=== PATIENT | female | born 1935 | race Caucasian/White ===

== ENCOUNTER 2017-06-27 06:50 | Emergency (ER) | payer OTHER ==
[~2017-06-27] VITALS: Ht 127 cm; Wt 54.4 kg
[~2017-06-27 06:50] MED LIST: DECADRON PO; GABAPENTIN300 MG PO; KEFLEX500 MG PO; PRILOSEC20 MG PO; TRAMADOL HCL50 MG PO; TRIAMTERENE/HCT1 TAB PO; ULTRAM50 MG PO; VERAPAMIL; ZOCOR40 MG PO
[2017-06-27 07:01] VITALS: BP 162/70
[2017-06-27] MEDS ORDERED: KEFLEX500 M1 PO (07:15)
== END 2017-06-27 08:50 | disposition home or self-care (01) ==
LOC: ED 06:50
DX: S80.811A Abrasion, right lower leg, initial encounter (principal); L08.9 Local infection of the skin and subcutaneous tissue, unspecified; Z88.6 Allergy status to analgesic agent; Z88.5 Allergy status to narcotic agent; Z88.8 Allergy status to other drugs, medicaments and biological substances; Z79.899 Other long term (current) drug therapy; W22.8XXA Striking against or struck by other objects, initial encounter; Y93.89 Activity, other specified; Y92.89 Other specified places as the place of occurrence of the external cause; Y99.8 Other external cause status

== ENCOUNTER → 2017-09-18 | Outpatient (CLI) | payer OTHER ==
[~2017-09-18] MED LIST changes: +KEFLEX500 M1 PO
== END | disposition home or self-care (01) ==
LOC: US 13:30
DX: M79.605 Pain in left leg (principal); M79.604 Pain in right leg; R60.0 Localized edema

== ENCOUNTER 2017-10-20 08:20 | Emergency (ER) | payer OTHER ==
[~2017-10-20] VITALS: Ht 162.5 cm; Wt 54.4 kg
[2017-10-20 08:24] VITALS: BP 110/72
== END 2017-10-20 09:36 | disposition home or self-care (01) ==
LOC: ED 08:20
DX: S89.91XA Unspecified injury of right lower leg, initial encounter (principal); S49.91XA Unspecified injury of right shoulder and upper arm, initial encounter; M79.651 Pain in right thigh; Z88.6 Allergy status to analgesic agent; Z88.8 Allergy status to other drugs, medicaments and biological substances; Z88.1 Allergy status to other antibiotic agents; Z79.899 Other long term (current) drug therapy; W18.30XA Fall on same level, unspecified, initial encounter; Y93.89 Activity, other specified; Y92.009 Unspecified place in unspecified non-institutional (private) residence as the place of occurrence of the external cause; Y99.8 Other external cause status

== ENCOUNTER → 2018-07-08 | Outpatient (CLI) | payer OTHER | END | disposition home or self-care (01) | LOC: RAD 15:16 | DX: M41.85 Other forms of scoliosis, thoracolumbar region (principal); S33.130A Subluxation of L3/L4 lumbar vertebra, initial encounter; M16.12 Unilateral primary osteoarthritis, left hip; X58.XXXA Exposure to other specified factors, initial encounter; Y93.89 Activity, other specified; Y92.89 Other specified places as the place of occurrence of the external cause; Y99.8 Other external cause status; Z91.81 History of falling ==

== ENCOUNTER → 2020-05-19 | Outpatient (CLI) | payer OTHER ==
[2020-05-19 16:23] LABS: BASO # 0.1 10*3/uL (0.0-0.1); BASO % 0.8 % (0.0-1.0); EOS # 0.3 10*3/uL (0.0-0.4); HEMATOCRIT 40.9 % (37.0-47.0); LYMPH # 2.3 10*3/uL (1.3-4.4); LYMPH % 27.8 % (27.0-41.0); MEAN CELL VOLUME 97.1 fl (81.0-99.0); MEAN CORPUSCULAR HGB 30.2 pg (27.0-31.0); MEAN CORPUSCULAR HGB CONC 31.1 g/dl (33.0-37.0); MEAN PLATELET VOLUME 10.4 fl (9.6-12.3); MONO # 0.8 10*3/uL (0.1-1.0); MONO % 9.1 % (3.0-9.0); NEUT # 4.9 10*3/uL (2.3-7.9); NEUT % 58.8 % (47.0-73.0); PLATELET COUNT AUTOMATED 280 10*3/uL (130-400); RED BLOOD COUNT 4.21 10*6/uL (4.10-5.10); RED CELL DISTRI WIDTH 13.2 % (0-14.5); WHITE BLOOD COUNT 8.3 10*3/uL (4.8-10.8)
[2020-05-19 16:38] LABS: BILIRUBIN Negative (Negative); BLOOD Negative (Negative); CLARITY Clear (Clear); COLOR Yellow (Yellow); GLUCOSE Negative (Negative); KETONE Negative (Negative); LEUKO ESTERASE 1+ (Negative); NITRITE Negative (Negative)
[2020-05-19 16:39] LABS: ALBUMIN 3.7 gm/dl (3.1-4.5); CREATININE 1.32 mg/dL (0.55-1.02); POTASSIUM 3.3 mmol/L (3.5-5.1)
[2020-05-19 16:47] LABS: URINE CREATININE RANDOM 93.6 mg/dL
[2020-05-19 17:03] LABS: EPITHELIAL CELLS 0-2
== END | disposition home or self-care (01) ==
LOC: LAB 14:49
PROVIDERS: ATTEND Internal Medicine Nephrology
DX: N18.30 Chronic kidney disease, stage 3 unspecified (principal); Z79.899 Other long term (current) drug therapy

== ENCOUNTER → 2020-12-04 | Outpatient (CLI) | payer OTHER ==
[2020-12-04 16:02] LABS: BASO # 0.1 10*3/uL (0.0-0.1); BASO % 0.9 % (0.0-1.0); EOS # 0.3 10*3/uL (0.0-0.4); EOS % 3.5 % (1.0-4.0); HEMATOCRIT 40.6 % (37.0-47.0); LYMPH # 2.3 10*3/uL (1.3-4.4); LYMPH % 30.1 % (27.0-41.0); MEAN CELL VOLUME 93.8 fl (81.0-99.0); MEAN CORPUSCULAR HGB 29.6 pg (27.0-31.0); MEAN CORPUSCULAR HGB CONC 31.5 g/dl (33.0-37.0); MEAN PLATELET VOLUME 9.5 fl (9.6-12.3); MONO # 0.8 10*3/uL (0.1-1.0); MONO % 10.1 % (3.0-9.0); NEUT # 4.3 10*3/uL (2.3-7.9); PLATELET COUNT AUTOMATED 293 10*3/uL (130-400); RED BLOOD COUNT 4.33 10*6/uL (4.10-5.10); RED CELL DISTRI WIDTH 13.2 % (0-14.5); WHITE BLOOD COUNT 7.8 10*3/uL (4.8-10.8)
[2020-12-04 16:02] LABS: BILIRUBIN Negative (Negative); BLOOD Negative (Negative); CLARITY Clear (Clear); COLOR Yellow (Yellow); GLUCOSE Negative (Negative); KETONE Negative (Negative); LEUKO ESTERASE 2+ (Negative); NITRITE Negative (Negative); PH 7.5 (4.5-8.0)
[2020-12-04 16:32] LABS: BACTERIA TRACE; EPITHELIAL CELLS 51-100; RBC 0-2 rbc/hpf (0-2); WBC 21-30 wbc/hpf (0-5)
[2020-12-04 16:32] LABS: ALBUMIN 3.6 gm/dl (3.1-4.5); CREATININE 1.28 mg/dL (0.55-1.02); POTASSIUM 3.1 mmol/L (3.5-5.1); URIC ACID 7.7 mg/dL (2.6-6.0)
[2020-12-04 16:39] LABS: FERRITIN 68.1 ng/mL (10.0-291.0)
== END | disposition home or self-care (01) ==
LOC: LAB 14:59 → US 15:00 → LAB 15:00
PROVIDERS: Internal Medicine Nephrology; ATTEND Podiatrist
DX: N18.30 Chronic kidney disease, stage 3 unspecified (principal); N25.81 Secondary hyperparathyroidism of renal origin; D63.1 Anemia in chronic kidney disease; E78.00 Pure hypercholesterolemia, unspecified

== ENCOUNTER 2021-08-06 15:45 | Emergency (ER) | payer OTHER ==
[~2021-08-06] VITALS: Ht 147.3 cm; Wt 54.4 kg
[2021-08-06 15:58] VITALS: BP 148/76
== END 2021-08-06 19:11 | disposition home or self-care (01) ==
LOC: ED 15:45
DX: S63.502A Unspecified sprain of left wrist, initial encounter (principal); S93.601A Unspecified sprain of right foot, initial encounter; S00.93XA Contusion of unspecified part of head, initial encounter; Z88.6 Allergy status to analgesic agent; Z88.8 Allergy status to other drugs, medicaments and biological substances; Z79.899 Other long term (current) drug therapy; Z90.710 Acquired absence of both cervix and uterus; Z90.49 Acquired absence of other specified parts of digestive tract; W01.0XXA Fall on same level from slipping, tripping and stumbling without subsequent striking against object, initial encounter; Y93.89 Activity, other specified; Y92.89 Other specified places as the place of occurrence of the external cause; Y99.8 Other external cause status

== ENCOUNTER → 2022-03-18 | Outpatient (CLI) | payer OTHER, MEDICAID ==
[2022-03-18 11:38] LABS: BASO # 0.1 10*3/uL (0.0-0.1); BASO % 0.6 % (0.0-1.0); EOS # 0.5 10*3/uL (0.0-0.4); EOS % 3.8 % (1.0-4.0); HEMATOCRIT 42.3 % (37.0-47.0); MEAN CELL VOLUME 94.8 fl (81.0-99.0); MEAN CORPUSCULAR HGB 30.7 pg (27.0-31.0); MEAN CORPUSCULAR HGB CONC 32.4 g/dl (33.0-37.0); MEAN PLATELET VOLUME 9.7 fl (9.6-12.3); NEUT # 7.5 10*3/uL (2.3-7.9); NEUT % 62.3 % (47.0-73.0); PLATELET COUNT AUTOMATED 287 10*3/uL (130-400); RED BLOOD COUNT 4.46 10*6/uL (4.10-5.10); RED CELL DISTRI WIDTH 13.6 % (0-14.5)
[2022-03-18 11:58] LABS: CREATININE 1.31 mg/dL (0.55-1.02); POTASSIUM 3.4 mmol/L (3.5-5.1); URIC ACID 8.2 mg/dL (2.6-6.0)
[2022-03-18 12:37] LABS: FERRITIN 43.2 ng/mL (10.0-291.0); VITAMIN D, 25-HYDROXY 24.9 ng/mL (30-100)
[2022-03-18 13:39] LABS: BILIRUBIN Negative (Negative); BLOOD Negative (Negative); CLARITY Clear (Clear); COLOR Yellow (Yellow); GLUCOSE Negative (Negative); KETONE Negative (Negative); LEUKO ESTERASE Negative (Negative); NITRITE Negative (Negative); UROBILINOGEN 0.2 E.U./dl (0.0-1.0)
[2022-03-18 14:31] LABS: EPITHELIAL CELLS 0-2; WBC 0-2 wbc/hpf (0-5)
[2022-03-18 19:23] LABS: URINE CREATININE RANDOM 14.6 mg/dL
== END | disposition home or self-care (01) ==
LOC: LAB 11:08
PROVIDERS: ATTEND Internal Medicine Nephrology
DX: N18.30 Chronic kidney disease, stage 3 unspecified (principal); N25.81 Secondary hyperparathyroidism of renal origin; D63.1 Anemia in chronic kidney disease; E79.0 Hyperuricemia without signs of inflammatory arthritis and tophaceous disease; Z79.899 Other long term (current) drug therapy

== ENCOUNTER 2022-06-13 17:48 | Emergency (ER) | payer OTHER, MEDICAID ==
[~2022-06-13] VITALS: Ht 162.5 cm; Wt 61.2 kg
[2022-06-13 18:26] LABS: HEMATOCRIT 47.2 % (37.0-47.0); MEAN CELL VOLUME 92.9 fl (81.0-99.0); MEAN CORPUSCULAR HGB 30.9 pg (27.0-31.0); MEAN CORPUSCULAR HGB CONC 33.3 g/dl (33.0-37.0); MEAN PLATELET VOLUME 9.6 fl (9.6-12.3); PLATELET COUNT AUTOMATED 301 10*3/uL (130-400); RED BLOOD COUNT 5.08 10*6/uL (4.10-5.10); RED CELL DISTRI WIDTH 13.3 % (0-14.5); WHITE BLOOD COUNT 14.4 10*3/uL (4.8-10.8)
[2022-06-13 18:37] LABS: ACT PARTIAL THROMBO TIME 26.2 SECONDS (20.0-32.1)
[2022-06-13 18:44] LABS: CREATININE 1.32 mg/dL (0.55-1.02); POTASSIUM 3.2 mmol/L (3.4-5.1); TOTAL PROTEIN 7.8 gm/dL (6.0-8.0)
[2022-06-13 18:53] LABS: MANUAL DIFF REFLEX YES
[2022-06-13 19:14] LABS: TOTAL CELLS COUNTED 100 #CELLS
[2022-06-13 19:15] LABS: PLATELET SUFFICIENCY NORMAL (NORMAL)
[2022-06-13 19:53] VITALS: BP 150/97
[2022-06-13] MEDS ORDERED: OMNICEF300 MG PO (20:10)
[2022-06-13] MEDS ORDERED: PROVENTIL HFA6.7 GM PO (20:10)
[2022-06-13] MEDS ORDERED: Ondansetron4 MG PO (20:10)
[2022-06-14] MEDS ORDERED: FUROSEMIDE20 M1 PO (03:31)
[2022-06-14] MEDS ORDERED: NEURONTIN300 MG PO (03:32)
[2022-06-14] MEDS ORDERED: TRAMADOL HCL50 MG PO (03:33)
[2022-06-14] MEDS ORDERED: [UNRECOGNIZED DRUG - OTHER] PO (03:34)
[2022-06-14] MEDS ORDERED: TRIAMTERENE-HC1 EACH PO (03:35)
[2022-06-15] MEDS ORDERED: ONDANSETRON HYDR4 M1 PO (12:22)
== END 2022-06-13 20:17 | disposition home or self-care (01) ==
LOC: ED 17:48
PROVIDERS: Emergency Medicine
DX: J40 Bronchitis, not specified as acute or chronic (principal); Z20.822 Contact with and (suspected) exposure to COVID-19; Z90.49 Acquired absence of other specified parts of digestive tract; Z90.710 Acquired absence of both cervix and uterus; Z98.890 Other specified postprocedural states; Z88.1 Allergy status to other antibiotic agents; Z88.5 Allergy status to narcotic agent; Z88.6 Allergy status to analgesic agent; Z88.8 Allergy status to other drugs, medicaments and biological substances

== ENCOUNTER → 2022-10-01 | Outpatient (CLI) | payer OTHER, MEDICAID ==
[~2022-10-01] MED LIST changes: +FUROSEMIDE20 M1 PO; +NEURONTIN300 MG PO; +OMNICEF300 MG PO; +ONDANSETRON HYDR4 M1 PO; +Ondansetron4 MG PO; +PROVENTIL HFA6.7 GM PO; +TRIAMTERENE-HC1 EACH PO; +[UNRECOGNIZED DRUG - OTHER] PO
== END | disposition home or self-care (01) ==
LOC: US 14:52
PROVIDERS: ATTEND Family Medicine
DX: M79.604 Pain in right leg (principal); M79.605 Pain in left leg

== ENCOUNTER 2023-11-03 06:55 | Emergency (ER) | payer OTHER, MEDICAID ==
[~2023-11-03] VITALS: Ht 127 cm; Wt 59.0 kg
[2023-11-03 07:05] VITALS: BP 136/60
[2023-11-03] MEDS ORDERED: TRAMADOL HCL50 MG PO (07:07)
[2023-11-03] MEDS ORDERED: ALLOPURINOL100 MG PO (07:08)
[2023-11-03 07:42] LABS: BASO % 0.5 % (0.0-1.0); EOS # 0.3 10*3/uL (0.0-0.4); EOS % 4.1 % (1.0-4.0); HEMATOCRIT 46.5 % (37.0-47.0); LYMPH # 2.4 10*3/uL (1.3-4.4); LYMPH % 30.9 % (27.0-41.0); MEAN CELL VOLUME 93.9 fl (81.0-99.0); MEAN CORPUSCULAR HGB 29.3 pg (27.0-31.0); MEAN CORPUSCULAR HGB CONC 31.2 g/dl (33.0-37.0); MEAN PLATELET VOLUME 9.3 fl (9.6-12.3); MONO # 0.7 10*3/uL (0.1-1.0); MONO % 8.7 % (3.0-9.0); NEUT # 4.3 10*3/uL (2.3-7.9); NEUT % 55.3 % (47.0-73.0); PLATELET COUNT AUTOMATED 298 10*3/uL (130-400); RED BLOOD COUNT 4.95 10*6/uL (4.10-5.10); RED CELL DISTRI WIDTH 13.8 % (0-14.5); WHITE BLOOD COUNT 7.7 10*3/uL (4.8-10.8)
[2023-11-03 07:53] LABS: ACT PARTIAL THROMBO TIME 27.2 SECONDS (20.0-32.1)
[2023-11-03 08:00] LABS: ALKALINE PHOSPHATASE 109 U/L (46-116); BUN 20 mg/dl (9-23); CHLORIDE 99 mmol/L (98-107); LIPASE 39 U/L (12-53); POTASSIUM 3.3 mmol/L (3.4-5.1); TOTAL PROTEIN 7.5 gm/dL (6.0-8.0)
[2023-11-03 08:02] LABS: SGPT/ALT < 7 U/L (5-49)
[2023-11-03] MEDS ORDERED: SODIUM CHLORIDE 0.9% 1,000 ML IV ONE (08:25)
[2023-11-03] MEDS ORDERED: AMOX-CLAV 875-1 EACH PO (10:28)
[2023-11-03] MEDS ORDERED: PREDNISONE20 M1 PO (10:28)
[2023-11-03] MEDS ORDERED: POTASSIUM CHLORIDE 20 MEQ TAB PO ONE (10:30)
== END 2023-11-03 11:00 | disposition home or self-care (01) ==
LOC: ED 06:55
PROVIDERS: Internal Medicine
DX: J18.9 Pneumonia, unspecified organism (principal); E87.6 Hypokalemia; E87.20 Acidosis, unspecified; Z53.29 Procedure and treatment not carried out because of patient's decision for other reasons; K21.9 Gastro-esophageal reflux disease without esophagitis; I10 Essential (primary) hypertension; M19.90 Unspecified osteoarthritis, unspecified site; E78.00 Pure hypercholesterolemia, unspecified; Z88.6 Allergy status to analgesic agent; Z88.8 Allergy status to other drugs, medicaments and biological substances; Z88.5 Allergy status to narcotic agent; Z90.49 Acquired absence of other specified parts of digestive tract; Z98.890 Other specified postprocedural states; Z90.710 Acquired absence of both cervix and uterus

== ENCOUNTER 2024-01-13 06:09 | Emergency (ER) | payer OTHER, MEDICAID ==
[~2024-01-13] VITALS: Ht 127 cm; Wt 59.0 kg
[~2024-01-13 06:09] MED LIST changes: +ALLOPURINOL100 MG PO; +AMOX-CLAV 875-1 EACH PO; +PREDNISONE20 M1 PO
[2024-01-13 06:34] VITALS: BP 135/46
[2024-01-13 06:54] LABS: BASO # 0.1 10*3/uL (0.0-0.1); BASO % 0.9 % (0.0-1.0); EOS # 0.4 10*3/uL (0.0-0.4); EOS % 5.6 % (1.0-4.0); HEMATOCRIT 41.1 % (37.0-47.0); LYMPH # 1.7 10*3/uL (1.3-4.4); LYMPH % 21.9 % (27.0-41.0); MEAN CELL VOLUME 94.9 fl (81.0-99.0); MEAN CORPUSCULAR HGB 29.6 pg (27.0-31.0); MEAN CORPUSCULAR HGB CONC 31.1 g/dl (33.0-37.0); MEAN PLATELET VOLUME 9.1 fl (9.6-12.3); MONO # 0.8 10*3/uL (0.1-1.0); MONO % 10.2 % (3.0-9.0); NEUT # 4.7 10*3/uL (2.3-7.9); PLATELET COUNT AUTOMATED 344 10*3/uL (130-400); RED BLOOD COUNT 4.33 10*6/uL (4.10-5.10); WHITE BLOOD COUNT 7.7 10*3/uL (4.8-10.8)
[2024-01-13 07:04] LABS: ACT PARTIAL THROMBO TIME 28.1 SECONDS (20.0-32.1)
[2024-01-13 07:10] LABS: ALKALINE PHOSPHATASE 103 U/L (46-116); BUN 12 mg/dl (9-23); CHLORIDE 103 mmol/L (98-107); POTASSIUM 3.4 mmol/L (3.4-5.1); TOTAL PROTEIN 6.4 gm/dL (6.0-8.0)
[2024-01-13 07:12] LABS: SGPT/ALT < 7 U/L (5-49)
[2024-01-13] MEDS ORDERED: LASIX40 MG PO (07:34)
[2024-01-13] MEDS ORDERED: FUROSEMIDE 40 MG TAB PO ONE (07:35)
[2024-01-13] MEDS ORDERED: CEPHALEXIN500 M1 PO (07:40)
[2024-01-13] MEDS ORDERED: Doxycycline Hyclate 100 MG CAP PO ONE (07:40)
[2024-01-13] MEDS ORDERED: CEPHALEXIN 500 MG CAP PO ONE (07:45)
== END 2024-01-13 08:14 | disposition home or self-care (01) ==
LOC: ED 06:09
PROVIDERS: Internal Medicine
DX: I87.2 Venous insufficiency (chronic) (peripheral) (principal); L03.116 Cellulitis of left lower limb; L03.115 Cellulitis of right lower limb; Z88.6 Allergy status to analgesic agent; Z88.5 Allergy status to narcotic agent; Z88.8 Allergy status to other drugs, medicaments and biological substances; Z88.1 Allergy status to other antibiotic agents; Z79.899 Other long term (current) drug therapy; Z90.49 Acquired absence of other specified parts of digestive tract; Z90.710 Acquired absence of both cervix and uterus; Z98.890 Other specified postprocedural states

== ENCOUNTER 2024-04-11 15:43 | Emergency (ER) | payer OTHER, MEDICAID ==
[~2024-04-11] VITALS: Ht 152.4 cm; Wt 59.0 kg
[~2024-04-11 15:43] MED LIST changes: +CEPHALEXIN500 M1 PO; +LASIX40 MG PO
[2024-04-11 15:52] VITALS: BP 175/75
== END 2024-04-11 16:51 | disposition home or self-care (01) ==
LOC: ED 15:43
DX: S30.0XXA Contusion of lower back and pelvis, initial encounter (principal); K21.9 Gastro-esophageal reflux disease without esophagitis; I10 Essential (primary) hypertension; M19.90 Unspecified osteoarthritis, unspecified site; E78.00 Pure hypercholesterolemia, unspecified; Z88.6 Allergy status to analgesic agent; Z88.8 Allergy status to other drugs, medicaments and biological substances; Z88.5 Allergy status to narcotic agent; Z90.49 Acquired absence of other specified parts of digestive tract; Z98.890 Other specified postprocedural states; Z90.710 Acquired absence of both cervix and uterus; W19.XXXA Unspecified fall, initial encounter; Y93.01 Activity, walking, marching and hiking; Y92.89 Other specified places as the place of occurrence of the external cause; Y99.8 Other external cause status